=== PATIENT | female | born 1985 | race Caucasian/White ===

== ENCOUNTER 2017-05-23 13:30 | Emergency (ER) | payer BC ==
[~2017-05-23] VITALS: Ht 154.9 cm; Wt 97.7 kg
[~2017-05-23 13:30] MED LIST: HYDR-569 PO; ONDA4TAB6 PO
[2017-05-23 15:11] VITALS: BP 153/72
[2017-05-23] MEDS ORDERED: IBUP-1986 PO (15:27)
[2017-05-23] MEDS ORDERED: benzocaine (Anbesol) 12ml bottle MM PRN (15:30)
== END 2017-05-23 15:36 | disposition home or self-care (01) ==
LOC: ER 13:32
DX: K08.89 Other specified disorders of teeth and supporting structures (principal); F17.210 Nicotine dependence, cigarettes, uncomplicated; F12.10 Cannabis abuse, uncomplicated; Z88.1 Allergy status to other antibiotic agents; Z56.0 Unemployment, unspecified
CPT/HCPCS: 99282

== ENCOUNTER 2017-11-03 14:21 | Emergency (ER) | payer SELFPAY ==
[~2017-11-03] VITALS: Ht 154.9 cm; Wt 87.7 kg
[~2017-11-03 14:21] MED LIST changes: +IBUP-1986 PO
[2017-11-03 15:11] LABS: BASOPHILS # (AUTO) 0.1 X10'3 (0-0.2); BASOPHILS % (AUTO) 0.9 % (0-1); EOSINOPHILS # (AUTO) 0.2 X10'3 (0-0.9); HEMATOCRIT 41.4 % (35.0-45.0); HEMOGLOBIN 13.7 g/dl (12.0-16.0); LYMPHOCYTES # (AUTO) 4.2 X10'3 (1.1-4.8); LYMPHOCYTES % (AUTO) 26.8 % (21-51); MEAN CORPUSCULAR HEMOGLOBIN 28.6 PG (27.0-31.0); MEAN CORPUSCULAR VOLUME 86.5 FL (78-98); MEAN PLATELET VOLUME 7.3 FL (7.4-10.4); MONOCYTES # (AUTO) 0.9 X10'3 (0-0.9); MONOCYTES % (AUTO) 5.9 % (2-12); NEUTROPHILS # (AUTO) 10.3 X10'3 (1.8-7.7); NEUTROPHILS % (AUTO) 65.4 % (42-75); PLATELET COUNT 404 X10'3 (140-440); RED BLOOD COUNT 4.79 X10'6 (4.20-5.60); RED CELL DISTRIBUTION WIDTH 14.8 % (11.5-14.5); WHITE BLOOD COUNT 15.8 X10'3 (4.5-11.0)
[2017-11-03 15:12] LABS: URINE HCG NEGATIVE (NEG)
[2017-11-03 15:13] LABS: INR 0.9 INR; PROTHROMBIN TIME 9.5 SECONDS (9.0-12.0)
[2017-11-03 15:14] LABS: CLARITY,URINE CLOUDY (Clear); COLOR,URINE RED (Yellow); GLUCOSE, URINE NEGATIVE (Neg); KETONES,URINE TRACE mg/dl (Neg); LEUKOCYTE ESTERASE ,URINE TRACE (Neg); OCCULT BLOOD,URINE LARGE (Neg); PROTEIN,URINE 100 mg/dl (Neg)
[2017-11-03 15:18] LABS: ALANINE AMINOTRANSFERASE 21 U/L (12-78); ALBUMIN 3.4 G/DL (3.4-5.0); ALKALINE PHOSPHATASE 80 IU/L (46-116); ANION GAP 9 (8-16); ASPARTATE AMINO TRANSFERASE 17 U/L (10-37); BILIRUBIN,TOTAL 0.8 MG/DL (0.1-1.0); BLOOD UREA NITROGEN 15 MG/DL (7-18); BUN/CREATININE RATIO 19.2 (6.6-38.0); CALCIUM 8.5 MG/DL (8.5-10.1); CHLORIDE 103 MMOL/L (99-107); CREATININE 0.78 MG/DL (0.40-0.90); GLUCOSE 93 MG/DL (70-104); LIPASE 107 U/L (73-393); POTASSIUM 3.8 MMOL/L (3.5-5.1); SODIUM 139 MMOL/L (135-145); TOTAL CARBON DIOXIDE 27.3 MMOL/L (24-32); TOTAL PROTEIN 6.7 G/DL (6.4-8.2); eGFR 85 ML/MIN
[2017-11-03 15:21] LABS: UA COLLECTION TYPE CLN CATCH MIDSTREAM
[2017-11-03 15:22] LABS: NITRITES, URINE NEGATIVE (Neg)
[2017-11-03 15:23] LABS: RBC,URINE TNTC /HPF (0-2)
[2017-11-03 15:24] LABS: BACTERIA,URINE 1+ /HPF (Neg); SQUAMOUS EPITHELIAL CELL,UR FEW /LPF (FEW); WBC,URINE 0-4 /HPF (0-4)
[2017-11-03 15:25] LABS: MUCUS STRANDS FEW /LPF (Neg)
[2017-11-03 16:01] VITALS: BP 121/64
[2017-11-03] MEDS: ketorolac trometh. 30mg/ml inj. IV ONE ×2 (16:16→16:53)
[2017-11-03] MEDS ORDERED: normal saline 1000ML IV soln IVB ONE (16:20)
[2017-11-03] MEDS ORDERED: amox tr/potassium clavulanate 875/125mg TAB PO ONE (16:55)
[2017-11-03] MEDS ORDERED: ketorolac trometh inj. 60 MG/2 ML VIAL IM ONE (16:55)
[2017-11-03] MEDS ORDERED: ondansetron 4mg rapidly disintigrating tab PO ONE (17:00)
[2017-11-03] MEDS ORDERED: AMOX-580 PO (17:04)
[2017-11-03] MEDS ORDERED: ONDA4TAB12 PO (17:04)
== END 2017-11-03 17:14 | disposition home or self-care (01) ==
LOC: ER 14:21
DX: K57.92 Diverticulitis of intestine, part unspecified, without perforation or abscess without bleeding (principal); F12.90 Cannabis use, unspecified, uncomplicated; Z56.0 Unemployment, unspecified; Z88.1 Allergy status to other antibiotic agents; Z79.2 Long term (current) use of antibiotics; Z79.899 Other long term (current) drug therapy
CPT/HCPCS: 36415; 74176; 80053; 81001; 81025; 83690; 85025; 85610; 87077; 87088; 87186; 96372; 99285; J1885

== ENCOUNTER 2018-05-19 17:27 | Emergency (ER) | payer BC ==
[~2018-05-19] VITALS: Ht 154.9 cm; Wt 51.0 kg
[~2018-05-19 17:27] MED LIST changes: +HYDR-4383 PO; -HYDR-569 PO; +ONDA4TAB12 PO
[2018-05-19 17:34] VITALS: BP 138/90
[2018-05-19 18:24] LABS: BASOPHILS % (AUTO) 0.3 % (0-1); EOSINOPHILS # (AUTO) 0.2 X10'3 (0-0.9); EOSINOPHILS % (AUTO) 1.8 % (0-6); HEMATOCRIT 40.5 % (35.0-45.0); HEMOGLOBIN 13.4 g/dl (12.0-16.0); LYMPHOCYTES # (AUTO) 3.4 X10'3 (1.1-4.8); MEAN CORPUSCULAR HEMOGLOBIN 28.5 PG (27.0-31.0); MEAN CORPUSCULAR VOLUME 86.3 FL (78-98); MEAN PLATELET VOLUME 7.1 FL (7.4-10.4); MONOCYTES # (AUTO) 0.9 X10'3 (0-0.9); MONOCYTES % (AUTO) 7.2 % (2-12); NEUTROPHILS # (AUTO) 7.7 X10'3 (1.8-7.7); NEUTROPHILS % (AUTO) 62.7 % (42-75); PLATELET COUNT 358 X10'3 (140-440); RED CELL DISTRIBUTION WIDTH 14.6 % (11.5-14.5); WHITE BLOOD COUNT 12.2 X10'3 (4.5-11.0)
[2018-05-19 18:25] LABS: URINE HCG NEGATIVE (NEG)
[2018-05-19 18:26] LABS: COLOR,URINE YELLOW (Yellow); GLUCOSE, URINE NEGATIVE (Neg); KETONES,URINE >=80 mg/dl (Neg); LEUKOCYTE ESTERASE ,URINE NEGATIVE (Neg); NITRITES, URINE NEGATIVE (Neg); OCCULT BLOOD,URINE MODERATE (Neg); PH,URINE 5.5 (4.8-8.0); PROTEIN,URINE NEGATIVE (Neg); UROBILINOGEN,URINE 0.2 E.U/dL (0.2-1.0)
[2018-05-19 18:31] LABS: PROTHROMBIN TIME 10.1 SECONDS (9.0-12.0)
[2018-05-19 18:33] LABS: ALANINE AMINOTRANSFERASE 15 U/L (12-78); ALBUMIN 3.7 G/DL (3.4-5.0); ALBUMIN/GLOBULIN RATIO 1.1 (1.1-1.5); ALKALINE PHOSPHATASE 65 IU/L (46-116); ANION GAP 8 (8-16); ASPARTATE AMINO TRANSFERASE 13 U/L (10-37); BILIRUBIN,TOTAL 1.4 MG/DL (0.1-1.0); BLOOD UREA NITROGEN 11 MG/DL (7-18); BUN/CREATININE RATIO 12.5 (6.6-38.0); CALCIUM 9.4 MG/DL (8.5-10.1); CHLORIDE 105 MMOL/L (99-107); CREATININE 0.88 MG/DL (0.40-0.90); GLUCOSE 105 MG/DL (70-104); POTASSIUM 3.9 MMOL/L (3.5-5.1); SODIUM 141 MMOL/L (135-145); TOTAL CARBON DIOXIDE 27.6 MMOL/L (24-32); TOTAL PROTEIN 7.2 G/DL (6.4-8.2); eGFR 74 ML/MIN
[2018-05-19 18:40] LABS: CLARITY,URINE SLIGHTLY CLOUDY (Clear); UA COLLECTION TYPE CLN CATCH MIDSTREAM; WBC,URINE 0-4 /HPF (0-4)
[2018-05-19 18:41] LABS: BACTERIA,URINE FEW /HPF (Neg); MUCUS STRANDS MANY /LPF (Neg); RBC,URINE 0-2 /HPF (0-2); SQUAMOUS EPITHELIAL CELL,UR FEW /LPF (FEW)
--- NOTE | 2018-05-19 19:51 | NUR ---
PT IS 32 YO FEMALE C/O LEFT FLANK PAIN SINCE WEDNESDAY RADIATING TO LLQ ABD, DX WITH KIDNEY STONE AT CLINIC, STARTED ON FLOMAX AND ZOFRAN, WENT TO CLINIC TODAY BECAUSE THE BOTTOM OF HER FEET ARE YELLOW, CLINIC REFERRED PT TO ER TO R/O SEPSIS, PT IS ALERT, RESP EVEN AND UNLABORED, SKIN P/W/D, WAITING TO BE EVALUATED
[2018-05-19] MEDS ORDERED: MAGN296S50 PO (20:28)
[2018-05-19] MEDS ORDERED: AMOX-422 PO (20:28)
[2018-05-19] MEDS ORDERED: BISA-155 PO (20:28)
== END 2018-05-19 20:45 | disposition home or self-care (01) ==
LOC: ER 17:28
DX: K59.00 Constipation, unspecified (principal); R10.32 Left lower quadrant pain; R10.12 Left upper quadrant pain; F12.90 Cannabis use, unspecified, uncomplicated; Z56.0 Unemployment, unspecified; Z88.1 Allergy status to other antibiotic agents; Z79.899 Other long term (current) drug therapy
CPT/HCPCS: 36415; 80053; 81001; 81025; 85025; 85610; 99283